=== PATIENT | male | born 1960 | race Caucasian/White ===

== ENCOUNTER 2020-09-29 19:58 | Inpatient (IN) | payer MEDICAID ==
[~2020-09-29] VITALS: Ht 175.3 cm; Wt 87.5 kg
--- NOTE | ~2020-09-29 | CON ---
[facility] [address] [place] [address] CONSULTATION Name: MARKUS CRAIG Room: [address] IN .R.#: [id number] Admission: 09/29/20 Attend Phys: Isak Bobby Discharge: Date of : 58 Report #: [id number] THIS REPORT FOR: cc: ALEJANDRA PEREZ,ALEJANDRA Newby,Chandler Lagos MD ~ DATE OF SERVICE: 09/30/2020 HISTORY OF PRESENT ILLNESS: This is a 60-year-old male patient who was evaluated by me for an episode of speech difficulty. I initially saw the patient and the patient does not even remember that he had any speech difficulty yesterday. Subsequently, I talked to Dr. Cervantes and later on I was able to get hold of the patient's daughter and talked to her in detail. I also talked to Dr. Holt, Emergency Room physician from last night. The daughter provides a history that this patient had multiple strokes in the past. That has affected his memory. 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 The patient is not complaining of any symptoms this morning. The daughter indicates that she collected a large fold from his previous hospitalization in [place] and she will bring for me to review it tomorrow. REVIEW OF SYSTEMS: Indicate that this patient was living with his . His a few years ago. He had some depression and he is on antidepressants, but he also started to have these multiple strokes, I do not know where those strokes were and it basically affected his memory. He had the workup in the past. To the best of the daughter's knowledge, he does not drink alcohol, he does smoke. A 14-point review of system with the patient indicated that he denies any eye, ENT, cardiac, respiratory, GI, , musculoskeletal, constitutional, dermatological, hematological, psychiatric, throat or allergic symptom associated with present symptomatology. PAST MEDICAL HISTORY: Positive for stroke, but I need to find out more about it and hopefully we will find out tomorrow when daughter brings prior records from [place]. SOCIAL HISTORY: This patient has a history of smoking. PHYSICAL EXAMINATION: NEUROLOGIC: Indicate he is alert. He could not tell me what month it is. He could not tell me the exact date. He knew what hospital he was in. He struggled to come up with the name of Antonio as a president, but subsequently he did that. His cranial nerve examination, the best it could [place] [address] CONSULTATION Name: MARKUS CRAIG Room: [address] IN [facility].#: [id number] Admission: 09/29/20 Attend Phys: Isak Bobby Discharge: Date of : 58 Report #: [id number] limited cooperation looks unremarkable. His strength, sensation, reflexes and tone is symmetrical. He does not appear to have any abnormality of the [id number]. There is no meningeal sign. There is no carotid bruit. Cardiorespiratory examination is unremarkable. VITAL SIGNS: Blood pressure is 139/103, pulse is 88, and temperature is 99. EXTREMITIES: His pulses in the lower extremities is nicely palpable. He has no edema, cyanosis or jaundice. CARDIAC: Unremarkable. LUNGS: No respiratory difficulty was noted. LABORATORY DATA: Indicate WBC of 10.2. IMPRESSION: This patient's cognition is impaired. 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 He needs an evaluation by neuropsychologist, but there is no neuropsychologist comes here. I will see if speech can do the cognitive evaluation in the meantime. I would like to do an MRI to see if he had another stroke. We give him Plavix last time and presently we will continue the combination of aspirin and Plavix. I did order TSH, vitamin B12 and a sed rate. He does have carotid stenosis and we will see if we can find an infarct in the distribution of the carotid, which will make that symptomatic and then we may have to consult the Vascular Surgery. More than 50 minutes of time was spent taking care of this patient today and majority was spent counseling and coordinating by talking to multiple other health career professional as summarized above. Thank you very much for this referral. By: [id number] Newby MD /nt
[2020-09-29 20:02] VITALS: BP 191/106
[2020-09-29] MEDS ORDERED: ATORVASTATIN CA80 MG PO (20:23)
[2020-09-29] MEDS ORDERED: CHILDREN'S ASPI81 MG PO (20:23)
[2020-09-29] MEDS ORDERED: CELEXA 10 MG TA10 M1 PO (20:23)
[2020-09-29] MEDS ORDERED: LISINOPRIL10 MG PO (20:24)
[2020-09-29] MEDS ORDERED: FLOMAX0.4 MG PO (20:24)
[2020-09-29 20:28] LABS: ABSOLUTE EOSINOPHILS 0.3 thou/uL (0.0-0.7); ABSOLUTE LYMPHOCYTES 3.3 thou/uL (0.8-5.3); ABSOLUTE MONOCYTES 0.8 thou/uL (0.0-1.2); ABSOLUTE NEUTROPHILS 5.9 thou/uL (1.6-8.1); BASOPHILS 0.4 %; EOSINOPHILS 2.5 %; HEMOGLOBIN 16.4 gm/dL (14.0-18.0); LYMPHOCYTES 32.2 %; MCH 31.4 pg (26.0-34.0); MCHC 34.2 g/dL (28.0-37.0); MCV 91.8 fL (80.0-100.0); MONOCYTES 7.5 %; MPV 8.2 fl. (7.2-11.1); NUCLEATED RBCS 0 /100WBC; PLATELET COUNT* 175 thou/uL (150-400); POLYS 57.4 %; RBC 5.23 mil/uL (4.50-6.00); RDW-CV 14.8 % (10.5-14.5); WBC 10.2 thou/uL (4.0-11.0)
[2020-09-29 20:39] LABS: CALCIUM 8.5 mg/dL (8.5-10.1); CREATININE 1.5 mg/dL (0.6-1.3); POTASSIUM 3.7 mmol/L (3.5-5.1)
[2020-09-29 20:41] LABS: PROTIME 10.4 Seconds (9.20-11.50)
[2020-09-29 20:52] LABS: ALBUMIN 3.3 g/dL (3.4-5.0); MAGNESIUM 1.8 mg/dL (1.8-2.4); TOTAL BILIRUBIN 0.4 mg/dL (<0.1-1.0)
[2020-09-29 21:04] LABS: URINE BILIRUBIN NEGATIVE (Negative); URINE BLOOD NEGATIVE (Negative); URINE CLARITY CLEAR; URINE COLOR YELLOW; URINE GLUCOSE-RANDOM NEGATIVE (Negative); URINE KETONES NEGATIVE (Negative); URINE LEUKOCYTES-REFLEX NEGATIVE (Negative); URINE NITRITE-REFLEX NEGATIVE (Negative); URINE PROTEIN NEGATIVE (Negative); URINE UROBILINOGEN 0.2 E.U./dl (0.2-1.0)
[2020-09-30 01:28] VITALS: BP 175/97
[2020-09-30 01:30] VITALS: BP 197/111
[2020-09-30 04:36] VITALS: BP 153/76
[2020-09-30 07:51] VITALS: BP 139/103
--- NOTE | 2020-09-30 09:39 | EKG ---
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 : 1960 Requested By: Christiana Holt Order Number: [id number] MD: Macario Turner Measurements Intervals [place] Rate: 71 P: 26 CT: 177 QRS: -80 QRSD: 90 T: 76 QT: 388 QTc: 422 Interpretive Statements Sinus rhythm left axis Abnormal R-wave progression, late transition Inferior infarct, old Baseline wander in lead(s) I,II,aVR,V3 No previous ECG available for comparison Electronically Signed On 09-30-2020 9:38:50 CDT by Macario Turner [email or web address] <ELECTRONICALLY SIGNED> By: Macario Turner MD, [facility] 09/30/20 0938 04 04 Macario Turner MD, [facility] /EPI
[2020-09-30 12:00] VITALS: BP 118/51
[2020-09-30 12:24] LABS: ALBUMIN 3.4 g/dL (3.4-5.0); CALCIUM 9.5 mg/dL (8.5-10.1); CREATININE 1.3 mg/dL (0.6-1.3); TOTAL BILIRUBIN 0.7 mg/dL (<0.1-1.0); TOTAL PROTEIN 7.3 g/dL (6.4-8.2)
[2020-09-30 16:00] VITALS: BP 181/105
[2020-09-30 23:06] LABS: GLYCOHEMOGLOBIN (HGB A1C) 5.6 % (4.8-5.6)
[2020-10-01] VITALS (8 sets, daily range): BP systolic 131–174; BP diastolic 79–93
[2020-10-01 04:32] LABS: CHOLESTEROL 146 mg/dL (<200); HDL CHOLESTEROL 46 mg/dL (>40); LDL CHOLESTEROL 78 mg/dL (<100); SERUM ASSESSMENT Clear; TC:HDL 3.2 Ratio (Not establshd); TRIGLYCERIDE 114 mg/dL (<150); VLDL 23 mg/dL (<40)
[2020-10-01] MEDS ORDERED: PLAVIX 75 MG TA75 MG PO (11:26)
--- NOTE | 2020-10-01 14:41 | 2DMMODE ---
[place] [address] 2 D/M-MODE ECHOCARDIOGRAM Name: MARKUS CRAIG Room: [address] IN .Oh.#: [id number] Admission: 09/29/20 Attend Phys: Cooper Campa Discharge: 10/01/20 Date of : 58 Date of Service: 10/01/20 1441 Report #: [id number] THIS REPORT FOR: cc: ALEJANDRA PEREZ,ALEJANDRA Turner,Macario Sam MD [facility] ~ APPROVED REPORT Study performed: 10/01/2020 12:06:03 EXAM: Comprehensive 2D, Doppler, and color-flow Echocardiogram Patient Location: In-Patient Room #: [facility] Status: routine BSA: 2.01 HR: 65 bpm BP: 174/93 mmHg Rhythm: NSR Other Information Study Quality: Good Indications CVA/TIA Echo Enhancing Agent Indication: Rule out Shunt Agent(s) / Amount(s) Used: Agitated Saline 10 cc 2D Dimensions IVSd: 12.33 (7-11mm) LVOT Diam: 19.51 (18-24mm) LVDd: 38.86 mm PWd: 12.56 (7-11mm) Ascending Ao: 33.77 (22-36mm) LVDs: 22.26 (25-40mm) Aortic Root: 33.93 mm Aortic Valve AoV Peak Seb.: 1.20 m/s AO Peak Gr.: 5.74 mmHg LVOT Max P.98 mmHg AO Mean Gr.: 3.16 mmHg LVOT Mean P.55 mmHg LVOT Max V: 1.22 m/s AO V2 VTI: 26.33 cm LVOT Mean V: 0.72 m/s MARGARET (VTI): 3.00 cm2 LVOT V1 VTI: 26.44 [place] [address] 2 D/M-MODE ECHOCARDIOGRAM Name: MARKUS CRAIG Room: [address] IN M.R.#: [id number] Admission: 09/29/20 Attend Phys: Cooper Campa Discharge: 10/01/20 Date of : 58 Date of Service: 10/01/20 1441 Report #: [id number] Mitral Valve E/A Ratio: 0.63 MV Decel. Time: 360.52 ms MV E Max Seb.: 0.46 m/s MV PHT: 104.55 ms MVA (PHT): 2.10 cm2 TDI Medial E' Seb.: 0.08 m/s Lateral E' Seb.: 0.11 m/s Pulmonary Valve PV Peak Seb.: 1.09 m/s PV Peak Gr.: 4.73 mmHg Left Ventricle The left ventricle is normal size. There is normal LV segmental wall motion. Mild concentric left ventricular hypertrophy. Left ventricular systolic function is normal. The left ventricular ejection fraction is within the normal range. LVEF is 60-65%. Grade I - abnormal relaxation pattern. Right Ventricle The right ventricle is normal size. The right ventricular systolic function is normal. Atria The left atrium size is normal. Interatrial septum is intact without evidence of ASD or PFO. The right atrium size is normal. Aortic Valve The Aortic valve is sclerotic. No aortic regurgitation is present. There is no aortic valvular stenosis. Mitral Valve The mitral valve is normal in structure. There is no mitral valve regurgitation noted. No evidence of mitral valve stenosis. Tricuspid Valve The tricuspid valve is normal in structure. Unable to assess PA pressure. Trace tricuspid regurgitation. Pulmonic Valve Pulmonic valve is not well visualized. There is no pulmonic valvular regurgitation[place] [address] 2 D/M-MODE ECHOCARDIOGRAM Name: MARKUS CRAIG Room: [address]#: [id number] Admission: 09/29/20 Attend Phys: Cooper Campa Discharge: 10/01/20 Date of : 58 Date of Service: 10/01/20 1441 Report #: [id number] The aortic root is normal in size. IVC is normal in size and collapses >50% with inspiration. Pericardium There is no pericardial effusion. <Conclusion> LVEF is 60-65%. Mild concentric left ventricular hypertrophy. The Aortic valve is sclerotic. Interatrial septum is intact without evidence of ASD or PFO. <ELECTRONICALLY SIGNED> By: Macario Turner MD, [facility] 10/01/20 1441 144 144 Macario Turner MD, FACC /INF
== END 2020-10-01 13:07 | disposition home or self-care (01) | DRG 65 ==
LOC: M.ERS 19:58 → M.TBA-ER 23:01 → M.2W 09-30 01:19
PROVIDERS: Emergency Medicine; Internal Medicine; ADMIT Internal Medicine; ATTEND Internal Medicine
DX: I63.9 Cerebral infarction, unspecified (principal); G45.9 Transient cerebral ischemic attack, unspecified; F17.210 Nicotine dependence, cigarettes, uncomplicated; F41.9 Anxiety disorder, unspecified; I10 Essential (primary) hypertension; Z79.82 Long term (current) use of aspirin; Z79.899 Other long term (current) drug therapy; Z20.822 Contact with and (suspected) exposure to COVID-19